=== PATIENT | female | born 2000 | race Asian ===

== ENCOUNTER 2021-05-03 15:42 | Inpatient (IN) | payer OTHER, SELFPAY ==
[2021-05-03 16:16] VITALS: BP 88/52; PULSE 58; RESP 14; TEMP 36.3; O2SAT 98
[2021-05-03 16:20] VITALS: BMI 22.6
[2021-05-03 18:00] VITALS: BP 96/54; PULSE 66; RESP 16; TEMP 36.9; O2SAT 99
--- NOTE | 2021-05-03 18:20 | PC.ADMIT ---
Wilber Pickering (Seiena) is a 21 year old female [employer] [facility] student admitted on CV from [facility] ED for ideation to cut herself and her roommate/ former partner with an exacto knife. Kaveh notes that the ending of this relationship and the pressure of exams and papers, together with recent poor sleep have led to increased anxiety, depressed mood and as she says trouble managing emotions. Kaveh reports sleep is often poor with occasional nightmares and that appetite is good. Her focus is notably good. Speech is normal rate, rhythm and prosidy. She is a non creek Georgian speaker but declined general activities therapist. Kaveh describes two panic attacks in the past 3 years as well as pervasive lower level anxiety. Kaveh notes that she has noticed cycles to her mood in which she goes through weeks long periods of depression and extended periods of non depressed mood. I usually do the things that help me and wait out the depressed times. Kaveh notes that exercise including HIT and weightlifting, time outdoors and playing piano help her when she is anxious or depressed. Kaveh states family is supportive but they live in [place] and she has spent most of her time away from them since leaving for boarding school at the start of middle school. I know they love me but we don't spend much time together. Crisis Eval notes family is not understanding of pt's sexuality. Kaveh reports both mom and dad have had treatment for anxiety and depression in the past. One cousin has a psychotic disorder. Patient denies perceptual disturbance of any kind. Kaveh denies history of trauma or abuse. She denies any substance use. She denies any medication trials on the past. She reports short term (12 session) therapy in the past for anxiety and depression. Kaveh's goals for admission are to learn skills for managing emotions, depression and anxiety. Lab from [facility] indicates possible UTI although nitrites are negative and patient is assymptomatic. Patient denies physical complaint
[2021-05-04 06:00] VITALS: BP 128/65; PULSE 92; RESP 16; TEMP 36.8; O2SAT 100
--- NOTE | 2021-05-04 18:56 | PC.NURSE ---
Patient submitted 3 day note 5:11pm.
--- NOTE | 2021-05-04 19:48 | P.HPPS_ITS ---
HPI Chief Complaint: Adjustment D/O w/Depressed Mood Sources of Information: patient interviewed, chart reviewed and crisis/core team assessment reviewed HPI Subjective Notes: Scott Warning and Conditional Voluntary Healthcare Proxy: No Guardianship: No Medical Problems Affecting Mental Status: No Narrative: Pt is a 21 y.o. who carries a dx of MDD, recurrent and BRUNA, prefers to be called Raymondjordy. She arrived to [facility] ED on 05/03/21 via section 12a after being evaluated by [facility] ([facility]). She self-presented to [facility] and reported trying to cut herself with xacto knife (did not break skin) and thinking of cutting her roommate last night. Precipitating factors include that she was in a relationship with her roommate x yrs, recently broke up in February 2021 (initiated by Kaveh), but housing plans to live together at [facility] already solidified so still roommates. Vonda reported to [facility] that she told her roommate she wanted to move out and her roommate opposed this, Vonda felt ?trapped? and ?angry.? Past Psychiatric History: PPH: -She reports she went to [facility] reporting SI, precipitating fx was stress in her relationship with same gf second semester of Freshman year, was prescribed a med for anxiety but does not remember name and denied benefit, didn?t refill it. 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 -Family is in [place]. They are close and supportive. Her dad is not entirely comfortable with her being shetty, so she has not talked with him about it but says her mom is supportive. Substance History: Substance use Hx: -No ETOH use or illicit substance use Diagnostics Vital Signs (24Hr): Vital Signs - 24 hr 05/04/21 06:00 Temperature 98.2 F Pulse Rate 92 Respiratory Rate 16 Blood Pressure 128/65 Pulse Oximetry 100 Body Mass Index 22.6 Meds/Allergies Meds Home Medications Acetaminophen (Acetaminophen 325 Mg Tablet) 650 mg PO Q6H PRN PRN Reason: Headache/Pain Mild Scale (1-3) Al Hydroxide/Mg Hydroxide (Magnesium Hydrox/Alum Hydrox 30 Ml Oral.Susp) 30 ml PO Q6H PRN PRN Reason: Heartburn/Nausea Escitalopram Oxalate (Escitalopram Oxalate 5 Mg Tablet) 5 mg PO BEDTIME ÁLVARO Last Admin: 05/04/21 20:47 Dose: 5 mg Documented by: Hydroxyzine HCl (Hydroxyzine Hcl 25 Mg Tablet) 25 mg PO BEDTIME PRN PRN Reason: Anxiety Magnesium Hydroxide (Milk Of Magnesia 30 Ml Oral.Susp) 30 ml PO DAILY PRN PRN Reason: Constipation Trazodone HCl (Trazodone Hcl 50 Mg Tablet) 50 mg PO BEDTIME PRN PRN Reason: Insomnia Allergies Allergies Allergy/AdvReac Type Severity Reaction Status Date / Time No Known Allergies Allergy Unverified 05/03/21 15:54 Mental Status Exam Mental Status Exam Narrative: A&O. Well groomed, good hygiene, normal body habitus. Good eye contact, attentive. No Tics or Tremors. No abnormal involuntary movements. Calm, cooperative, engaged. Non-pressured speech, spontaneous with regular rate and rhythm, normal volume and prosody. No prolonged speech latency or dysarthria. Mood is ?low,? affect is appropriate, somewhat anxious. Currently denies SI/SIB/HI upon inquiry. Denies A/VH or delusional thought content. Thoughts are coherent, organized. No known cognitive or memory impairment. Insight/ Judgment fair and adequate. Assessment & Plan Assessment & Plan (1) MDD (major depressive disorder), recurrent episode, moderate: Status: Acute Code(s): F33.1 - Major depressive disorder, recurrent, moderate (2) BRUNA (generalized anxiety disorder): Status: Acute Code(s): F41.1 - Generalized anxiety disorder Assessment and Plan: Pt is a 21 y.o. female who carries a dx of MDD recurrent and BRUNA. She arrived to [facility] on 05/03/21 via section 12a after being evaluated by [facility] ([facility]) for SI and HI. She current presents with sx of depression including anhedonia, low energy, and poor sleep. Also reports increased anxiety and feeling overwhelmed in context of recent break up with gf who she still lives with on campus, family stress, and academic stress. She denies HI or assaultive ideation, questions this report on crisis eval. She currently denies SI. Protective factors include that she is help seeking and has family/ friend support. She is interested in starting a medication to help with emotions. Plan: Start lexapro 5 mg QHS for sx of anxiety and depression, monitor for activating SE, reviewed risks and benefits including black box warning. Monitor response to medications. Monitor for safety in the milieu. Discharge on stabilization. Patient seen. Chart reviewed. Discussed with team. Obtain collateral contact info?as needed Reason for continued inpatient stay Substantial Risk for: harm to self and med/psych decompensation
[2021-05-04 20:05] VITALS: BP 119/64; PULSE 91; TEMP 36.9; O2SAT 98
[2021-05-04] MEDS: Escitalopram Oxalate 5 MG TABLET PO (20:47)
[2021-05-05 06:00] VITALS: BP 107/61; PULSE 75; RESP 75; TEMP 36.6; O2SAT 98
--- NOTE | 2021-05-05 12:57 | HO.PSYCHPN ---
Subjective Subjective Date of Service: 05/05/21 Reason For Visit: Adjustment D/O w/Depressed Mood Interim History: pt reports she has no SI/HI/AVH. her mood is pretty good. she states she has managed to change her living situation and is feeling pressure to leave today because it is her understanding per [facility] protocol she only has 48 hours to move her things. per discussion with JL garza, [facility] doesn't even know she is in the hospital yet and appointments will not be able to be arranged if pt is discharged today. discharge is cancelled and planned for saturday at the earliest in order for recent events to be processed by the [facility]. pt otherwise reports no side effects from medication. per staff, pt has been pleasant and interactive. 3/ anx, 09/14 dep. denies SI/HI. 0 dep last NOC. Mental Status Exam Mental Status Exam Narrative: A&O. Well groomed, good hygiene, normal body habitus. Good eye contact, attentive. No Tics or Tremors. No abnormal involuntary movements. Calm, cooperative, engaged. Non-pressured speech, spontaneous with regular rate and rhythm, normal volume and prosody. No prolonged speech latency or dysarthria. Mood is ?pretty good,? affect is appropriate. Currently denies SI/SIB/HI upon inquiry. Denies A/VH or delusional thought content. Thoughts are coherent, organized. No known cognitive or memory impairment. Insight/ Judgment fair and adequate. Diagnostics Vital Signs (24Hr): Vital Signs - 24 hr 05/04/21 20:05 05/05/21 06:00 Temperature 98.5 F 97.9 F Pulse Rate 91 75 Respiratory Rate 75 H Blood Pressure 119/64 107/61 Pulse Oximetry 98 98 Body Mass Index 22.6 Medications Medications Current Medications Acetaminophen (Acetaminophen 325 Mg Tablet) 650 mg PO Q6H PRN PRN Reason: Headache/Pain Mild Scale (1-3) Al Hydroxide/Mg Hydroxide (Magnesium Hydrox/Alum Hydrox 30 Ml Oral.Susp) 30 ml PO Q6H PRN PRN Reason: Heartburn/Nausea Escitalopram Oxalate (Escitalopram Oxalate 5 Mg Tablet) 5 mg PO BEDTIME ÁLVARO Last Admin: 05/04/21 20:47 Dose: 5 mg Documented by: Hydroxyzine HCl (Hydroxyzine Hcl 25 Mg Tablet) 25 mg PO BEDTIME PRN PRN Reason: Anxiety Magnesium Hydroxide (Milk Of Magnesia 30 Ml Oral.Susp) 30 ml PO DAILY PRN PRN Reason: Constipation Trazodone HCl (Trazodone Hcl 50 Mg Tablet) 50 mg PO BEDTIME PRN PRN Reason: Insomnia Allergies Allergies Allergy/AdvReac Type Severity Reaction Status Date / Time No Known Allergies Allergy Unverified 05/03/21 15:54 Assessment & Plan Assessment & Plan (1) MDD (major depressive disorder), recurrent episode, moderate: Status: Acute Code(s): F33.1 - Major depressive disorder, recurrent, moderate (2) BRUNA (generalized anxiety disorder): Status: Acute Code(s): F41.1 - Generalized anxiety disorder Assessment and Plan: Pt is a 21 y.o. female who carries a dx of MDD recurrent and BRUNA. She arrived to [facility] ED on 05/03/21 via section 12a after being evaluated by [facility] ([facility]) for SI and HI. She current presents with sx of depression including anhedonia, low energy, and poor sleep. Also reports increased anxiety and feeling overwhelmed in context of recent break up with gf who she still lives with on campus, family stress, and academic stress. She denies HI or assaultive ideation, questions this report on crisis eval. She currently denies SI. Protective factors include that she is help seeking and has family/ friend support. She is interested in starting a medication to help with emotions. Plan: Started lexapro 5 mg QHS for sx of anxiety and depression, monitor for activating SE, reviewed risks and benefits including black box warning. Monitor response to medications. Monitor for safety in the milieu. Discharge on stabilization. Patient seen. Chart reviewed. Discussed with team. Obtain collateral contact info?as needed Greater than 50% of the session was spent on counseling and/or coordination of care Reason for contiued inpatient stay Substantial Risk for: harm to self and harm to others
--- NOTE | 2021-05-05 13:43 | HO.PM.IMCN ---
History of Present Illness Data of Consult Service Date: 05/05/21 Primary Care Provider: Unknown Physician HPI Reason for consult: Medical management and routine history and physical 21-year-old female patient with past medical history of major depression disorder, generalized anxiety disorder admitted to adult psychiatric unit as a transfer from [facility] by a section 12 a with suicidal ideation, at present patient offers no acute medical complaints, she denies any shortness of breath, no chest pain, no palpitations. Review of Systems Review of Systems: General no headache, no dizziness, no fever chills. CVS no chest pain, no palpitation. Respiratory no cough, no sob Gastrointestinal no nausea, no vomiting, no abdominal pain Yes all other systems are reviewed and are negative [facility] Functional capacity: independent ambulation Pertinent family history: Mother has history of depression, father is healthy, no history of premature coronary artery disease, breast or colon cancer Social History Household Members: Friend(s) Household Members Other:: lives in university dormitory Housing: Other Housing Other:: dormitory Do you presently have visiting nurse or other home services: No Patient Tobacco Use Status: Never used Tobacco Use of substances other than those prescribed or required for medical reasons: No Substance Use Type: Caffiene Substance Use Type Other:: 3 x week Currently Displaying Signs/Symptoms of Drug Intoxication Withdrawal: No Any prior treatment program specific to substance use: No Have you been hit, kicked, punched, or otherwise hurt by someone within the past year? If so, by whom?: No Do you feel safe in your current relationship?: No Current Relationship Is there a partner from a previous relationship who is making you feel unsafe now?: Yes (I feel physically safe but mentally suffering or hurting) Are you made to feel afraid or neglected: No Advance Directives: No Advance Directives Information Provided: No Advance Directives on File: No Do you have thoughts of harming others: None Do you have a plan to hurt others: No Plan Recently lost weight without trying: No Nutrition Risks: No Nutritional Risk Patient : No : No Poor oral hygiene: No service: No Sexual orientation: Don't Know Meds Allergies Allergy/AdvReac Type Severity Reaction Status Date / Time No Known Allergies Allergy Unverified 05/03/21 15:54 Active Medications: Current Medications Acetaminophen (Acetaminophen 325 Mg Tablet) 650 mg PO Q6H PRN PRN Reason: Headache/Pain Mild Scale (1-3) Al Hydroxide/Mg Hydroxide (Magnesium Hydrox/Alum Hydrox 30 Ml Oral.Susp) 30 ml PO Q6H PRN PRN Reason: Heartburn/Nausea Escitalopram Oxalate (Escitalopram Oxalate 5 Mg Tablet) 5 mg PO BEDTIME ÁLVARO Last Admin: 05/04/21 20:47 Dose: 5 mg Documented by: Hydroxyzine HCl (Hydroxyzine Hcl 25 Mg Tablet) 25 mg PO BEDTIME PRN PRN Reason: Anxiety Magnesium Hydroxide (Milk Of Magnesia 30 Ml Oral.Susp) 30 ml PO DAILY PRN PRN Reason: Constipation Trazodone HCl (Trazodone Hcl 50 Mg Tablet) 50 mg PO BEDTIME PRN PRN Reason: Insomnia Home Medications Medication Instructions Recorded Confirmed Last Taken Type No Known Home Meds 05/03/21 05/03/21 Unknown History Physical Exam Vital Signs and Narrative: Vital Signs: Last Vital Signs Temp 97.9 F 05/05/21 06:00 Pulse 75 05/05/21 06:00 Resp 75 H 05/05/21 06:00 BP 107/61 05/05/21 06:00 Pulse Ox 98 05/05/21 06:00 Body Mass Index 22.6 General AxOX3, no acute distress. Neck supple no JVD. CVS regular rate rhythm, Respiratory lungs clear to auscultation, no respiratory distress Gastrointestinal abdomen soft, nontender, bowel sounds audible, Extremities no clubbing cyanosis or edema. Neuro nonfocal Skin no rash Assessment and Plan (1) MDD (major depressive disorder), recurrent episode, moderate: Status: Acute (2) BRUNA (generalized anxiety disorder): Status: Acute 21-year-old female patient with past medical history of major depressive disorder admitted to with suicidal ideation at present patient offers no acute medical complaints Thank you for allowing us to participate in the care of this patient please call us with any questions in regard to any medical concerns.
[2021-05-05] MEDS: hydrOXYzine HCL 25 MG TABLET PO (16:53)
[2021-05-05 20:24] VITALS: BP 114/56; PULSE 74; TEMP 36.9; O2SAT 99
[2021-05-05] MEDS: Escitalopram Oxalate 5 MG TABLET PO (20:42)
[2021-05-06 10:01] VITALS: BP 100/51; PULSE 66; RESP 16; TEMP 37.1; O2SAT 97
--- NOTE | 2021-05-06 13:43 | P.PNPSI_ITS ---
Subjective Subjective Date of Service: 05/06/21 Reason For Visit: Adjustment D/O w/Depressed Mood Interim History: pt reports she is doing well. a friend brought her in some books to read, so at least she can stay occupied that way. reports she spoke with eula late in the day saturday and understands the situation and is OK to wait until saturday. no complaints or requests for today. per staff, slept well. pleasant and cooperative. Mental Status Exam Mental Status Exam Narrative: A&O. Well groomed, good hygiene, normal body habitus. Good eye contact, attentive. No Tics or Tremors. No abnormal involuntary movements. Calm, cooperative, engaged. Non-pressured speech, spontaneous with regular rate and rhythm, normal volume and prosody. No prolonged speech latency or dysarthria. Mood is ?good,? affect is appropriate. Currently denies SI/SIB/HI upon inquiry. Denies A/VH or delusional thought content. Thoughts are coherent, organized. No known cognitive or memory impairment. Insight/ Judgment fair and adequate. Diagnostics Vital Signs (24Hr): Vital Signs - 24 hr 05/05/21 20:24 05/06/21 10:01 Temperature 98.4 F 98.8 F Pulse Rate 74 66 Respiratory Rate 16 Blood Pressure 114/56 L 100/51 L Pulse Oximetry 99 97 Body Mass Index 22.6 Medications Medications Current Medications Acetaminophen (Acetaminophen 325 Mg Tablet) 650 mg PO Q6H PRN PRN Reason: Headache/Pain Mild Scale (1-3) Al Hydroxide/Mg Hydroxide (Magnesium Hydrox/Alum Hydrox 30 Ml Oral.Susp) 30 ml PO Q6H PRN PRN Reason: Heartburn/Nausea Escitalopram Oxalate (Escitalopram Oxalate 5 Mg Tablet) 5 mg PO BEDTIME ÁLVARO Last Admin: 05/05/21 20:42 Dose: 5 mg Documented by: Hydroxyzine HCl (Hydroxyzine Hcl 25 Mg Tablet) 25 mg PO BEDTIME PRN PRN Reason: Anxiety Last Admin: 05/05/21 16:53 Dose: 25 mg Documented by: Magnesium Hydroxide (Milk Of Magnesia 30 Ml Oral.Susp) 30 ml PO DAILY PRN PRN Reason: Constipation Trazodone HCl (Trazodone Hcl 50 Mg Tablet) 50 mg PO BEDTIME PRN PRN Reason: Insomnia Allergies Allergies Allergy/AdvReac Type Severity Reaction Status Date / Time No Known Allergies Allergy Unverified 05/03/21 15:54 Assessment & Plan Assessment & Plan (1) MDD (major depressive disorder), recurrent episode, moderate: Status: Acute Code(s): F33.1 - Major depressive disorder, recurrent, moderate (2) BRUNA (generalized anxiety disorder): Status: Acute Code(s): F41.1 - Generalized anxiety disorder Assessment and Plan: Pt is a 21 y.o. female who carries a dx of MDD recurrent and BRUNA. She arrived to [facility] ED on 05/03/21 via section 12a after being evaluated by [facility] ([facility]) for SI and HI. She current presents with sx of depression including anhedonia, low energy, and poor sleep. Also reports increased anxiety and feeling overwhelmed in context of recent break up with gf who she still lives with on campus, family stress, and academic stress. She denies HI or assaultive ideation, questions this report on crisis eval. She currently denies SI. Protective factors include that she is help seeking and has family/ friend support. She is interested in starting a medication to help with emotions. Plan: Started lexapro 5 mg QHS for sx of anxiety and depression, monitor for activating SE, reviewed risks and benefits including black box warning. Monitor response to medications. Monitor for safety in the milieu. Discharge on stabilization. Patient seen. Chart reviewed. Discussed with team. Obtain collateral contact info?as needed Greater than 50% of the session was spent on counseling and/or coordination of care Greater than 50% of the session was spent on counseling and/or coordination of care Reason for contiued inpatient stay Substantial Risk for: harm to self and harm to others
[2021-05-06 20:00] VITALS: BP 99/72; PULSE 62; TEMP 36.6; O2SAT 98
[2021-05-06] MEDS: Escitalopram Oxalate 5 MG TABLET PO (20:47)
[2021-05-07 10:02] VITALS: BP 104/61; PULSE 73; RESP 16; TEMP 37.4; O2SAT 99
--- NOTE | 2021-05-07 14:34 | HO.PSYCHPN ---
Subjective Subjective Date of Service: 05/07/21 Reason For Visit: Adjustment D/O w/Depressed Mood Interim History: pt reports she continues to feel well, looking forward to discharge tomorrow. has been playing games with peers, which she states she has been enjoying. sleeping and eating well, feeling calm and relaxed. per staff, pt has been visible, social, pleasant, sleeping well. Mental Status Exam Mental Status Exam Narrative: A&O. Well groomed, good hygiene, normal body habitus. Good eye contact, attentive. No Tics or Tremors. No abnormal involuntary movements. Calm, cooperative, engaged. Non-pressured speech, spontaneous with regular rate and rhythm, normal volume and prosody. No prolonged speech latency or dysarthria. Mood is ?good,? affect is appropriate. Currently denies SI/SIB/HI upon inquiry. Denies A/VH or delusional thought content. Thoughts are coherent, organized. No known cognitive or memory impairment. Insight/ Judgment fair and adequate. Diagnostics Vital Signs (24Hr): Vital Signs - 24 hr 05/06/21 20:00 05/07/21 10:02 Temperature 97.9 F 99.4 F Pulse Rate 62 73 Respiratory Rate 16 Blood Pressure 99/72 104/61 Pulse Oximetry 98 99 Body Mass Index 22.6 Medications Medications Current Medications Acetaminophen (Acetaminophen 325 Mg Tablet) 650 mg PO Q6H PRN PRN Reason: Headache/Pain Mild Scale (1-3) Al Hydroxide/Mg Hydroxide (Magnesium Hydrox/Alum Hydrox 30 Ml Oral.Susp) 30 ml PO Q6H PRN PRN Reason: Heartburn/Nausea Escitalopram Oxalate (Escitalopram Oxalate 5 Mg Tablet) 5 mg PO BEDTIME ÁLVARO Last Admin: 05/06/21 20:47 Dose: 5 mg Documented by: Hydroxyzine HCl (Hydroxyzine Hcl 25 Mg Tablet) 25 mg PO BEDTIME PRN PRN Reason: Anxiety Last Admin: 05/05/21 16:53 Dose: 25 mg Documented by: Magnesium Hydroxide (Milk Of Magnesia 30 Ml Oral.Susp) 30 ml PO DAILY PRN PRN Reason: Constipation Trazodone HCl (Trazodone Hcl 50 Mg Tablet) 50 mg PO BEDTIME PRN PRN Reason: Insomnia Allergies Allergies Allergy/AdvReac Type Severity Reaction Status Date / Time No Known Allergies Allergy Unverified 05/03/21 15:54 Assessment & Plan Assessment & Plan (1) MDD (major depressive disorder), recurrent episode, moderate: Status: Acute Code(s): F33.1 - Major depressive disorder, recurrent, moderate (2) BRUNA (generalized anxiety disorder): Status: Acute Code(s): F41.1 - Generalized anxiety disorder Assessment and Plan: Pt is a 21 y.o. female who carries a dx of MDD recurrent and BRUNA. She arrived to [facility] ED on 05/03/21 via section 12a after being evaluated by [facility] ([facility]) for SI and HI. She current presents with sx of depression including anhedonia, low energy, and poor sleep. Also reports increased anxiety and feeling overwhelmed in context of recent break up with gf who she still lives with on campus, family stress, and academic stress. She denies HI or assaultive ideation, questions this report on crisis eval. She currently denies SI. Protective factors include that she is help seeking and has family/ friend support. She is interested in starting a medication to help with emotions. Plan: Started lexapro 5 mg QHS for sx of anxiety and depression, monitor for activating SE, reviewed risks and benefits including black box warning. Monitor response to medications. Monitor for safety in the milieu. Discharge on stabilization. Patient seen. Chart reviewed. Discussed with team. Obtain collateral contact info?as needed Greater than 50% of the session was spent on counseling and/or coordination of care Reason for contiued inpatient stay Substantial Risk for: harm to self, harm to others and med/psych decompensation
[2021-05-07 18:00] VITALS: BP 137/66; PULSE 74; RESP 16; TEMP 36.9; O2SAT 100
[2021-05-07] MEDS: Escitalopram Oxalate 5 MG TABLET PO (20:29)
--- NOTE | 2021-05-08 10:15 | P.DS_ITS ---
DS: Providers Provider Date of Service: 05/08/21 Date of admission: 05/03/21 15:42 Primary care physician: Unknown Physician Consults: 05/03/21 17:42 Consult to Hospitalist Routine Consulting Provider: Hospitalist Reason For Exam: Adm from [facility] , per policy - needs hosp consult DS: Diagnosis Discharge Diagnosis (1) MDD (major depressive disorder), recurrent episode, moderate: Status: Acute (2) BRUNA (generalized anxiety disorder): Status: Acute DS: Medications Discharge Medications Home Medications: Home Medications Medication Instructions Recorded Confirmed No Known Home Meds 05/03/21 05/03/21 Previous Rx's Medication Instructions Recorded escitalopram oxalate 5 mg tablet 5 mg PO BEDTIME 30 Days #30 tab 05/05/21 Mental Status Exam Mental Status Exam Narrative: A&O. Well groomed, good hygiene, normal body habitus. Good eye contact, attentive. No Tics or Tremors. No abnormal involuntary movements. Calm, cooperative, engaged. Non-pressured speech, spontaneous with regular rate and rhythm, normal volume and prosody. No prolonged speech latency or dysarthria. Mood is ?good,? affect is appropriate. Currently denies SI/SIB/HI upon inquiry. Denies A/VH or delusional thought content. Thoughts are coherent, organized. No known cognitive or memory impairment. Insight/ Judgment fair and adequate. DS: Summary Hospital Course Hospital Course: per Sebastián 05/04 H&P: Pt is a 21 y.o. who carries a dx of MDD, recurrent and BRUNA, prefers to be called Kaveh. She arrived to [facility] ED on 05/03/21 via section 12a after being evaluated by [facility] ([facility]). She self-presented to [facility] and reported trying to cut herself with xacto knife (did not break skin) and thinking of cutting her roommate last night. Precipitating factors include that she was in a relationship with her roommate x yrs, recently broke up in February 2021 (initiated by Kaveh), but housing plans to live together at [facility] already solidified so still roommates. Vonda reported to [facility] that she told her roommate she wanted to move out and her roommate opposed this, Vonda felt ?trapped? and ?angry.? Past Psychiatric History: PPH: -She reports she went to [facility] reporting SI, precipitating fx was stress in her relationship with same gf second semester of Freshman year, was prescribed a med for anxiety but does not remember name and denied benefit, didn?t refill it.? 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 -Family is in [place]. They are close and supportive. Her dad is not entirely comfortable with her being shetty, so she has not talked with him about it but says her mom is supportive.? ? Substance History: Substance use Hx: -No ETOH use or illicit substance use per Enmanuel 05/05 Progress Note: pt reports she has no SI/HI/AVH.? her mood is pretty good. ? she states she has managed to change her living situation and is feeling pressure to leave today because it is her understanding per [facility] protocol she only has 48 hours to move her things.? per discussion with JL garza, [facility] doesn't even know she is in the hospital yet and appointments will not be able to be arranged if pt is discharged today.? discharge is cancelled and planned for saturday at the earliest in order for recent events to be processed by the [facility].? pt otherwise reports no side effects from medication.? per staff, pt has been pleasant and interactive.? 10/12 anx, 09/14 dep.? denies SI/HI.? dep last NOC. per Enmanuel 05/06 Progress Note: ?pt reports she is doing well.? a friend brought her in some books to read, so at least she can stay occupied that way.? reports she spoke with eula late in the day saturday and understands the situation and is OK to wait until saturday.? no complaints or requests for today.? per staff, slept well.? pleasant and cooperative. per Enmanuel 05/07 Progress Note: pt reports she continues to feel well, looking forward to discharge tomorrow.? has been playing games with peers, which she states she has been enjoying.? sleeping and eating well, feeling calm and relaxed. ? per staff, pt has been visible, social, pleasant, sleeping well. 05/08: continues to feel well, ready for discharge. mood good, no safety concerns. per staff, calm, cooperative, social. good ADLs, some increase in anxiety about life after discharge. period of tearfulness and anxiety last evening. slept well. discharged to self care today. Time Spent with Patient Time attestation: Total time spent providing and/or coordinating discharge services: Discharge Plan Discharge Patient Disposition: Home, Self-Care Discharge Diagnosis: Major Depressive Disorder, Recurrent, Moderate Referrals: Brynn Arce (Counseling/Therapy) [Other] - 1 Week (Please follow up with the [facility] counseling center until a therapist is able to be secured for longer term treatment. ) Physician,Unknown J [Primary Care Provider] - 1 Week Discharge Medications: New escitalopram oxalate 5 mg Tablet 5 mg PO BEDTIME 30 Days Qty: 30 RF: 0 No Action No Known Home Meds RF: 0 Discharge Orders: Discharge Order (Routine); Ordered 05/08/21 Ordered By: Zay Singer Diet: regular diet Activity on Discharge: As tolerated Stand Alone Forms: Patient Portal Discharge page, Community Support Care Plan Goals: maintain safe and independent living with outapatient follow-up. Health Concerns: none Plan of Treatment: continue to take medication as prescribed, attend appointments as scheduled. refrain from contact with your former roommate. Assessment: not at imminent risk of harm to self or others. Discharge Date/Time: 05/08/21 14:57
== END 2021-05-08 14:57 | disposition home or self-care (01) | DRG 885 ==
PROVIDERS: Admitting Provider Psychiatry & Neurology Psychiatry; Visit Provider Psychiatry & Neurology Psychiatry
DX: F33.1 Major depressive disorder, recurrent, moderate (principal); F41.1 Generalized anxiety disorder
CPT/HCPCS: 90686